=== PATIENT | male | born 1945 | race Caucasian/White ===

== ENCOUNTER 2018-04-13 21:00 | Inpatient (IN) ==
[2018-04-13] MEDS ORDERED: MORPHINE 4 MG/1 ML VIAL IV STA (21:38)
[2018-04-13] MEDS ORDERED: ONDANSETRON 4 MG/2 ML VIAL IV ONE (21:38)
[2018-04-13 21:58] LABS: Basophils # 0.1 10*3/uL (0.0-0.2); Basophils % 0.5 % (0.0-0.8); Eosinophils # 0.2 10*3/uL (0.0-0.87); Eosinophils % 1.6 % (0.00-10.9); Hematocrit 37.2 VOL% (42.0-52.0); Hemoglobin 12.2 GM/DL (14.0-18.0); Immature Granulocytes % 0.7 %; Immature Granulocytes Absolute 0.09 #; Lymphocytes # 1.7 10*3/uL (1.4-4.0); Mean Corpuscular HGB Conc 32.8 GM/DL (32-36); Mean Corpuscular Hemoglobin 28 PG (27-34); Mean Corpuscular Volume 84.5 FL (87-102); Mean Platelet Volume 8.9 FL (9.6-12.0); Monocytes # 1.2 10*3/uL (0.11-0.8); Monocytes % 9.6 % (1.7-12.7); Neutrophils # 8.9 10*3/uL (1.4-7.4); Neutrophils % 73.6 % (38.7-73.9); Platelet Count 428 T/CUMM (130-400); Red Cell Distribution Width 13.2 % (9.3-17.3); White Blood Count 12.1 T/CUMM (4-12)
[2018-04-13 22:12] LABS: Albumin 2.8 G/DL (3.4-5.0); Bilirubin,Total 0.7 MG/DL (0.2-1.0); Calcium 8.5 MG/DL (8.5-10.1); Osmolality,Calculated 276.8 MOS/KG (273-304); Potassium 3.9 MMOL/L (3.5-5.1); Total Protein 7.1 G/DL (6.4-8.3)
[2018-04-13] MEDS ORDERED: LEVOFLOXACIN INJ 500 MG in PREMIX 1 EACH IV STA (23:29)
[2018-04-13] MEDS ORDERED: diphenhydrAMINE CAP 25 MG CAPSULE PO PRN (23:57)
[2018-04-13] MEDS ORDERED: ACETAMINOPHEN 325 MG TABLET PO PRN (23:57)
[2018-04-13] MEDS ORDERED: BISACODYL 5 MG TABLET PO PRN (23:57)
[2018-04-13] MEDS ORDERED: guaiFENesin/DM ER 600-30 MG TABLET PO PRN (23:57)
[2018-04-13] MEDS ORDERED: MORPHINE 4 MG/1 ML VIAL IV PRN (23:57)
[2018-04-13] MEDS ORDERED: traZODone 50 MG TABLET PO PRN (23:57)
[2018-04-13] MEDS ORDERED: ONDANSETRON 4 MG/2 ML VIAL IV PRN (23:57)
[2018-04-13] MEDS ORDERED: NICOTINE 21 MG/24 HR PATCH TRANSDERM PRN (23:57)
[2018-04-14] MEDS ORDERED: MORPHINE 4 MG/1 ML VIAL IV STA (00:16)
[2018-04-14] MEDS: ALBUTEROL/IPRATROPIUM 3 ML NEB RESP TX SCH ×6 (02:37→23:47)
[2018-04-14 06:33] LABS: Basophils # 0.1 10*3/uL (0.0-0.2); Basophils % 0.5 % (0.0-0.8); Eosinophils # 0.2 10*3/uL (0.0-0.87); Eosinophils % 1.2 % (0.00-10.9); Hematocrit 38.5 VOL% (42.0-52.0); Hemoglobin 12.9 GM/DL (14.0-18.0); Immature Granulocytes % 0.8 %; Immature Granulocytes Absolute 0.11 #; Lymphocytes # 2.2 10*3/uL (1.4-4.0); Lymphocytes % 16.5 % (21.2-54.2); Mean Corpuscular HGB Conc 33.5 GM/DL (32-36); Mean Corpuscular Hemoglobin 28 PG (27-34); Mean Corpuscular Volume 84.2 FL (87-102); Mean Platelet Volume 8.8 FL (9.6-12.0); Monocytes # 1.3 10*3/uL (0.11-0.8); Monocytes % 9.8 % (1.7-12.7); Neutrophils # 9.6 10*3/uL (1.4-7.4); Neutrophils % 71.2 % (38.7-73.9); Platelet Count 449 T/CUMM (130-400); Red Blood Count 4.57 MC/CUMM (3.8-5.5); Red Cell Distribution Width 13.3 % (9.3-17.3); White Blood Count 13.6 T/CUMM (4-12)
[2018-04-14 06:40] LABS: Apearance,Urine CLEAR (Clear); Bilirubin,Urine Negative (Negative); Blood, Urine Negative (Negative); Glucose,Urine (UA) Negative (Negative); Ketones,Urine Negative (Negative); Nitrite,Urine Negative (Negative); Protein,Urine Negative; RBC,Urine 1 /HPF (0-4); Urine Color Yellow (Yellow); Urine Specific Gravity 1.047 (1.001-1.035); WBC,Urine <1 /HPF (0-6)
[2018-04-14 06:48] LABS: Calcium 8.5 MG/DL (8.5-10.1); Osmolality,Calculated 269.4 MOS/KG (273-304)
[2018-04-14] MEDS ORDERED: PANTOPRAZOLE 40 MG TABLET PO SCH (09:00)
[2018-04-14] MEDS: LACTATED RINGERS 1,000 ML IV SCH ×2 (10:51→23:02)
[2018-04-14] MEDS: CHOLECALCIFEROL 1,000 UNIT TABLET PO SCH ×2 (15:09→21:15)
[2018-04-14] MEDS: VENLAFAXINE XR 75 MG CAPSULE PO SCH (21:15)
[2018-04-14] MEDS ORDERED: LEVOFLOXACIN INJ 750 MG in PREMIX 1 EACH IV SCH (23:45)
[2018-04-15] MEDS: ALBUTEROL/IPRATROPIUM 3 ML NEB RESP TX SCH ×2 (04:33→07:22)
[2018-04-15 05:30] LABS: Basophils # 0.1 10*3/uL (0.0-0.2); Basophils % 0.6 % (0.0-0.8); Eosinophils # 0.2 10*3/uL (0.0-0.87); Eosinophils % 2.3 % (0.00-10.9); Hematocrit 35.2 VOL% (42.0-52.0); Hemoglobin 11.6 GM/DL (14.0-18.0); Immature Granulocytes % 0.7 %; Immature Granulocytes Absolute 0.07 #; Lymphocytes # 2.2 10*3/uL (1.4-4.0); Lymphocytes % 22.9 % (21.2-54.2); Mean Corpuscular Hemoglobin 28 PG (27-34); Mean Corpuscular Volume 85.2 FL (87-102); Mean Platelet Volume 8.9 FL (9.6-12.0); Monocytes # 0.9 10*3/uL (0.11-0.8); Monocytes % 9.3 % (1.7-12.7); Neutrophils % 64.2 % (38.7-73.9); Platelet Count 366 T/CUMM (130-400); Red Blood Count 4.13 MC/CUMM (3.8-5.5); Red Cell Distribution Width 13.3 % (9.3-17.3); White Blood Count 9.4 T/CUMM (4-12)
[2018-04-15 05:58] LABS: Calcium 8.5 MG/DL (8.5-10.1); Potassium 4.1 MMOL/L (3.5-5.1)
[2018-04-15 08:10] VITALS: BP 120/76
[2018-04-15] MEDS: VENLAFAXINE XR 75 MG CAPSULE PO SCH (08:50)
[2018-04-15] MEDS: CHOLECALCIFEROL 1,000 UNIT TABLET PO SCH (08:51)
[2018-04-15] MEDS ORDERED: ASPIRIN EC 81 MG TABLET PO SCH (09:00)
[2018-04-15] MEDS ORDERED: FENOFIBRATE 145 MG TABLET PO SCH (09:00)
[2018-04-15] MEDS ORDERED: ATORVASTATIN 20 MG TABLET PO SCH (09:00)
[2018-04-15] MEDS ORDERED: MULTIVITAMIN (CENTRUM) TABLET PO SCH (09:00)
[2018-04-15] MEDS ORDERED: OMEGA 3 ACID ETHYL ESTERS 1 GM CAPSULE PO SCH (09:00)
[2018-04-15] MEDS ORDERED: PANTOPRAZOLE 40 MG TABLET PO SCH (09:00)
[2018-04-15] MEDS ORDERED: CYANOCOBALAMIN 500 MCG TABLET PO SCH (09:00)
== END 2018-04-15 10:45 | disposition home or self-care (01) | DRG 195 ==
LOC: N.ED 21:00 → N.EDINP 21:00 → SUATTDRO 23:57 → N.2E 04-14 00:32
PROVIDERS: ADMIT Internal Medicine; ATTEND Family Medicine

== ENCOUNTER 2020-06-10 16:45 | Inpatient (IN) ==
[2020-06-10] MEDS ORDERED: SODIUM CHLORIDE 0.9% 1,000 ML IV STA (17:23)
[2020-06-10 18:54] LABS: Bilirubin,Urine Negative (Negative); Blood, Urine Moderate mg/dL (Negative); Glucose,Urine (UA) Negative (Negative); Ketones,Urine Negative (Negative); Mucus,Urine Occasional /LPF (Occasional); Nitrite,Urine Negative (Negative); Protein,Urine Negative; RBC,Urine 3 /HPF (0-4); Urine Appearance CLEAR (Clear); Urine Color Amber (Yellow); Urine Specific Gravity 1.018 (1.001-1.035); WBC,Urine 1 /HPF (0-6)
[2020-06-10 18:57] LABS: Basophils # 0.2 10*3/uL (0.0-0.2); Basophils % 1.5 % (0.0-0.8); Eosinophils % 0.3 % (0.00-10.9); Hematocrit 39.5 VOL% (42.0-52.0); Hemoglobin 13.9 GM/DL (14.0-18.0); Immature Granulocytes % 0.7 %; Immature Granulocytes Absolute 0.08 #; Lymphocytes # 1.6 10*3/uL (1.4-4.0); Lymphocytes % 12.7 % (21.2-54.2); Mean Corpuscular HGB Conc 35.2 GM/DL (32-36); Mean Corpuscular Volume 77.5 FL (87-102); Mean Platelet Volume 9.1 FL (9.6-12.0); Neutrophils % 74.8 % (38.7-73.9); Platelet Count 369 T/CUMM (130-400); Red Cell Distribution Width 14.8 % (9.3-17.3); White Blood Count 12.2 T/CUMM (4-12)
[2020-06-10 19:08] LABS: INR 1.2; PT Patient Result 12.6 SECS (9.8-11.9)
[2020-06-10 19:13] LABS: Albumin 2.6 G/DL (3.4-5.0); Bilirubin,Total 0.8 MG/DL (0.2-1.0); Calcium 8.2 MG/DL (8.5-10.1); Osmolality,Calculated 263.2 MOS/KG (273-304); Potassium 3.7 MMOL/L (3.5-5.1); Total Protein 6.4 G/DL (6.4-8.2)
[2020-06-10] MEDS ORDERED: ACETAMINOPHEN 500 MG TABLET PO STA (19:51)
[2020-06-10] MEDS ORDERED: DOCUSATE SODIUM 100 MG CAPSULE PO PRN (21:46)
[2020-06-10] MEDS ORDERED: ONDANSETRON 4 MG/2 ML VIAL IV PRN (21:46)
[2020-06-10] MEDS ORDERED: ACETAMINOPHEN 325 MG TABLET PO PRN (21:46)
[2020-06-10] MEDS ORDERED: GLUCAGON 1 MG VIAL IM PRN (21:46)
[2020-06-10] MEDS ORDERED: DEXTROSE 50% 25 GM/50 ML VIAL IV PRN (21:46)
[2020-06-10] MEDS ORDERED: LEVOFLOXACIN INJ 750 MG in PREMIX 1 EACH IV SCH (22:30)
[2020-06-10] MEDS ORDERED: VANCOMYCIN INJ 1,250 MG in SODIUM CHLORIDE 0.9% 250 ML IV SCH ×2 (23:00)
[2020-06-10] MEDS: VENLAFAXINE XR 75 MG CAPSULE PO SCH (23:45)
[2020-06-10] MEDS: SODIUM CHLORIDE 0.9% 1,000 ML IV SCH (23:45)
[2020-06-10] MEDS: CALCIUM CARBONATE CHEW 500 MG TABLET PO SCH (23:45)
[2020-06-11 03:55] LABS: Basophils # 0.2 10*3/uL (0.0-0.2); Basophils % 1.7 % (0.0-0.8); Eosinophils # 0.2 10*3/uL (0.0-0.87); Eosinophils % 2.1 % (0.00-10.9); Hematocrit 36.5 VOL% (42.0-52.0); Hemoglobin 12.5 GM/DL (14.0-18.0); Immature Granulocytes % 0.5 %; Immature Granulocytes Absolute 0.05 #; Lymphocytes # 1.2 10*3/uL (1.4-4.0); Lymphocytes % 12.4 % (21.2-54.2); Mean Corpuscular HGB Conc 34.2 GM/DL (32-36); Mean Platelet Volume 9.3 FL (9.6-12.0); Monocytes % 10.6 % (1.7-12.7); Neutrophils % 72.7 % (38.7-73.9); Platelet Count 298 T/CUMM (130-400); Red Blood Count 4.62 MC/CUMM (3.8-5.5); White Blood Count 9.4 T/CUMM (4-12)
[2020-06-11 04:17] LABS: Calcium 7.4 MG/DL (8.5-10.1); Osmolality,Calculated 268.7 MOS/KG (273-304); Potassium 3.3 MMOL/L (3.5-5.1)
[2020-06-11] MEDS ORDERED: MAGNESIUM SULF RIDER 2 GM in PREMIX 1 EACH IV PRN (04:30)
[2020-06-11] MEDS ORDERED: POTASSIUM CHLORIDE 20 MEQ TABLET PO PRN (04:30)
[2020-06-11] MEDS ORDERED: MAGNESIUM SULF RIDER 4 GM in PREMIX 1 EACH IV PRN (04:30)
[2020-06-11] MEDS: PIPERACILLIN/TAZOBACTAM 3,375 MG in SODIUM CHLORIDE 0.9% 100 ML IV SCH ×2 (05:09→16:15)
[2020-06-11] MEDS: ASPIRIN EC 81 MG TABLET PO SCH (09:28)
[2020-06-11] MEDS: PANTOPRAZOLE 40 MG TABLET PO SCH (09:28)
[2020-06-11] MEDS: CHOLECALCIFEROL 1,000 UNIT TABLET PO SCH (09:29)
[2020-06-11] MEDS: MONTELUKAST 10 MG TABLET PO SCH (09:29)
[2020-06-11] MEDS: CYANOCOBALAMIN 500 MCG TABLET PO SCH (09:29)
[2020-06-11] MEDS: MEGESTROL 40 MG TABLET PO SCH (09:30)
[2020-06-11] MEDS: OMEGA 3 ACID ETHYL ESTERS 1 GM CAPSULE PO SCH ×2 (09:31→20:34)
[2020-06-11] MEDS: FENOFIBRATE 145 MG TABLET PO SCH (09:31)
[2020-06-11] MEDS: MULTIVITAMIN (CENTRUM) TABLET PO SCH (09:31)
[2020-06-11] MEDS: CALCIUM CARBONATE CHEW 500 MG TABLET PO SCH ×2 (09:32→20:34)
[2020-06-11] MEDS: VENLAFAXINE XR 75 MG CAPSULE PO SCH ×2 (09:32→20:34)
[2020-06-11] MEDS: TAMSULOSIN 0.4 MG CAPSULE PO SCH (13:34)
[2020-06-11] MEDS: SODIUM CHLORIDE 0.9% 1,000 ML IV SCH ×2 (14:30→16:27)
[2020-06-11] MEDS: ZINC OXIDE PASTE 113 GM TUBE TOP SCH ×2 (14:34→20:35)
[2020-06-11] MEDS: PRAMIPEXOLE 0.25 MG TABLET PO SCH (18:45)
[2020-06-11] MEDS ORDERED: ATORVASTATIN 20 MG TABLET PO SCH (21:00)
[2020-06-12] MEDS: PIPERACILLIN/TAZOBACTAM 3,375 MG in SODIUM CHLORIDE 0.9% 100 ML IV SCH ×4 (01:07→23:25)
[2020-06-12 06:56] LABS: Basophils # 0.1 10*3/uL (0.0-0.2); Eosinophils # 0.1 10*3/uL (0.0-0.87); Eosinophils % 1.2 % (0.00-10.9); Hematocrit 38.7 VOL% (42.0-52.0); Immature Granulocytes % 0.6 %; Immature Granulocytes Absolute 0.06 #; Lymphocytes % 10.2 % (21.2-54.2); Mean Corpuscular HGB Conc 33.6 GM/DL (32-36); Mean Platelet Volume 9.2 FL (9.6-12.0); Monocytes % 8.7 % (1.7-12.7); Neutrophils % 78.3 % (38.7-73.9); Platelet Count 278 T/CUMM (130-400); Red Cell Distribution Width 14.9 % (9.3-17.3); White Blood Count 9.4 T/CUMM (4-12)
[2020-06-12 07:01] LABS: Calcium 6.8 MG/DL (8.5-10.1); Osmolality,Calculated 256.1 MOS/KG (273-304); Potassium 3.1 MMOL/L (3.5-5.1)
[2020-06-12] MEDS: ZINC OXIDE PASTE 113 GM TUBE TOP SCH ×2 (08:11→21:41)
[2020-06-12] MEDS: CHOLECALCIFEROL 1,000 UNIT TABLET PO SCH (09:03)
[2020-06-12] MEDS: TAMSULOSIN 0.4 MG CAPSULE PO SCH (09:03)
[2020-06-12] MEDS: MONTELUKAST 10 MG TABLET PO SCH (09:03)
[2020-06-12] MEDS: VENLAFAXINE XR 75 MG CAPSULE PO SCH ×2 (09:03→21:41)
[2020-06-12] MEDS: OMEGA 3 ACID ETHYL ESTERS 1 GM CAPSULE PO SCH ×2 (09:03→21:41)
[2020-06-12] MEDS: ASPIRIN EC 81 MG TABLET PO SCH (09:04)
[2020-06-12] MEDS: MULTIVITAMIN (CENTRUM) TABLET PO SCH (09:04)
[2020-06-12] MEDS: MEGESTROL 40 MG TABLET PO SCH (09:04)
[2020-06-12] MEDS: CALCIUM CARBONATE CHEW 500 MG TABLET PO SCH ×2 (09:04→21:41)
[2020-06-12] MEDS: CYANOCOBALAMIN 500 MCG TABLET PO SCH (09:04)
[2020-06-12] MEDS: PANTOPRAZOLE 40 MG TABLET PO SCH (09:04)
[2020-06-12] MEDS: FENOFIBRATE 145 MG TABLET PO SCH (09:05)
[2020-06-12] MEDS ORDERED: FUROSEMIDE 20 MG/2 ML VIAL IV ONE (11:00)
[2020-06-12] MEDS ORDERED: ENOXAPARIN 40 MG/0.4 ML SYRINGE SUBCUT SCH (16:00)
[2020-06-12] MEDS: POTASSIUM CHLORIDE 10 MEQ TABLET PO SCH (17:03)
[2020-06-12] MEDS: PRAMIPEXOLE 0.25 MG TABLET PO SCH (21:41)
[2020-06-13] MEDS: SODIUM CHLORIDE 0.9% 1,000 ML IV SCH (02:23)
[2020-06-13 06:34] LABS: Basophils # 0.1 10*3/uL (0.0-0.2); Basophils % 1.1 % (0.0-0.8); Eosinophils # 0.3 10*3/uL (0.0-0.87); Eosinophils % 2.8 % (0.00-10.9); Hematocrit 40.4 VOL% (42.0-52.0); Hemoglobin 13.8 GM/DL (14.0-18.0); Immature Granulocytes % 0.8 %; Immature Granulocytes Absolute 0.08 #; Lymphocytes # 1.7 10*3/uL (1.4-4.0); Lymphocytes % 16.3 % (21.2-54.2); Mean Corpuscular HGB Conc 34.2 GM/DL (32-36); Mean Platelet Volume 9.4 FL (9.6-12.0); Platelet Count 287 T/CUMM (130-400); Red Blood Count 5.18 MC/CUMM (3.8-5.5); White Blood Count 10.6 T/CUMM (4-12)
[2020-06-13 08:27] LABS: Osmolality,Calculated 260.9 MOS/KG (273-304); Potassium 3.6 MMOL/L (3.5-5.1)
[2020-06-13] MEDS: CHOLECALCIFEROL 1,000 UNIT TABLET PO SCH (09:01)
[2020-06-13] MEDS: ASPIRIN EC 81 MG TABLET PO SCH (09:01)
[2020-06-13] MEDS: VENLAFAXINE XR 75 MG CAPSULE PO SCH (09:01)
[2020-06-13] MEDS: OMEGA 3 ACID ETHYL ESTERS 1 GM CAPSULE PO SCH (09:01)
[2020-06-13] MEDS: CALCIUM CARBONATE CHEW 500 MG TABLET PO SCH (09:02)
[2020-06-13] MEDS: MEGESTROL 40 MG TABLET PO SCH (09:04)
[2020-06-13] MEDS: MONTELUKAST 10 MG TABLET PO SCH (09:04)
[2020-06-13] MEDS: POTASSIUM CHLORIDE 10 MEQ TABLET PO SCH (09:04)
[2020-06-13] MEDS: MULTIVITAMIN (CENTRUM) TABLET PO SCH (09:04)
[2020-06-13] MEDS: PANTOPRAZOLE 40 MG TABLET PO SCH (09:04)
[2020-06-13] MEDS: TAMSULOSIN 0.4 MG CAPSULE PO SCH (09:04)
[2020-06-13] MEDS: CYANOCOBALAMIN 500 MCG TABLET PO SCH (09:05)
[2020-06-13] MEDS: PIPERACILLIN/TAZOBACTAM 3,375 MG in SODIUM CHLORIDE 0.9% 100 ML IV SCH ×2 (09:05→17:22)
[2020-06-13] MEDS: ZINC OXIDE PASTE 113 GM TUBE TOP SCH (09:06)
[2020-06-13] MEDS ORDERED: FUROSEMIDE 40 MG/4 ML VIAL IV ONE ×2 (11:43→14:30)
[2020-06-13] MEDS ORDERED: FUROSEMIDE 40 MG/4 ML VIAL ONE (11:45)
[2020-06-13] MEDS ORDERED: METOPROLOL TARTRATE 5 MG/5 ML VIAL IV ONE (12:46)
[2020-06-13] MEDS ORDERED: ALBUTEROL/IPRATROPIUM 3 ML NEB RESP TX SCH (13:00)
[2020-06-13] MEDS: LEVALBUTEROL 0.63 MG/3 ML NEB RESP TX SCH ×2 (13:00→19:40)
[2020-06-13 13:07] LABS: Basophils # 0.1 10*3/uL (0.0-0.2); Basophils % 0.7 % (0.0-0.8); Eosinophils % 0.2 % (0.00-10.9); Hematocrit 40.6 VOL% (42.0-52.0); Hemoglobin 14.2 GM/DL (14.0-18.0); Immature Granulocytes % 2.5 %; Immature Granulocytes Absolute 0.41 #; Lymphocytes # 1.1 10*3/uL (1.4-4.0); Lymphocytes % 6.6 % (21.2-54.2); Mean Corpuscular Volume 77.5 FL (87-102); Mean Platelet Volume 9.2 FL (9.6-12.0); Monocytes % 5.9 % (1.7-12.7); Neutrophils % 84.1 % (38.7-73.9); Platelet Count 382 T/CUMM (130-400); Red Blood Count 5.24 MC/CUMM (3.8-5.5); White Blood Count 16.2 T/CUMM (4-12)
[2020-06-13 13:36] LABS: CKMB % 1.9 %; Calcium 7.3 MG/DL (8.5-10.1); Osmolality,Calculated 261.1 MOS/KG (273-304); Potassium 3.8 MMOL/L (3.5-5.1)
[2020-06-13 13:40] LABS: Troponin I 1.05 NG/ML (0.00-0.045)
[2020-06-13] MEDS ORDERED: ENOXAPARIN 80 MG/0.8 ML SYRINGE SUBCUT SCH (14:00)
[2020-06-13] MEDS ORDERED: DIGOXIN 0.5 MG/2 ML AMP IV ONE (14:31)
[2020-06-13] MEDS: METOPROLOL TARTRATE 25 MG TABLET PO SCH (14:32)
[2020-06-13] MEDS: DILTIAZEM INJ 100 MG in SODIUM CHLORIDE 0.9% 100 ML IV SCH (14:45)
[2020-06-13 15:28] LABS: ABG Base Excess -2.9 MMOL/L (-2.5-2.5); ABG Oxygen Saturation 97.3 % (95-100); ABG PCO2 21.8 MM HG (35-48); ABG PH 7.521 (7.35-7.45); ABG PO2 82.8 MM HG (80-95); ABG TCO2 15.2 MMOL/L (23-27)
[2020-06-13] MEDS: VANCOMYCIN INJ 1,000 MG in SODIUM CHLORIDE 0.9% 250 ML IV SCH (16:35)
[2020-06-13] MEDS ORDERED: HALOPERIDOL 5 MG/ML AMP IM PRN (22:19)
[2020-06-14] MEDS ORDERED: DIGOXIN 0.5 MG/2 ML AMP IV ONE (00:10)
[2020-06-14] MEDS: PIPERACILLIN/TAZOBACTAM 3,375 MG in SODIUM CHLORIDE 0.9% 100 ML IV SCH ×3 (00:36→16:33)
[2020-06-14] MEDS: LORazepam 2 MG/1 ML VIAL IV PRN (01:06)
[2020-06-14] MEDS: LEVALBUTEROL 0.63 MG/3 ML NEB RESP TX SCH ×4 (01:50→19:21)
[2020-06-14] MEDS: VENLAFAXINE XR 75 MG CAPSULE PO SCH ×3 (02:12→22:10)
[2020-06-14] MEDS: ZINC OXIDE PASTE 113 GM TUBE TOP SCH ×3 (02:12→21:28)
[2020-06-14] MEDS: OMEGA 3 ACID ETHYL ESTERS 1 GM CAPSULE PO SCH ×3 (02:12→23:15)
[2020-06-14] MEDS: PRAMIPEXOLE 0.25 MG TABLET PO SCH ×2 (02:12→22:10)
[2020-06-14] MEDS: CALCIUM CARBONATE CHEW 500 MG TABLET PO SCH ×3 (02:13→23:15)
[2020-06-14] MEDS: DILTIAZEM INJ 100 MG in SODIUM CHLORIDE 0.9% 100 ML IV SCH ×2 (02:31→15:57)
[2020-06-14] MEDS: VANCOMYCIN INJ 1,000 MG in SODIUM CHLORIDE 0.9% 250 ML IV SCH ×2 (03:19→16:37)
[2020-06-14] MEDS ORDERED: FUROSEMIDE 40 MG/4 ML VIAL IV SCH (09:00)
[2020-06-14 09:29] LABS: Calcium 7.6 MG/DL (8.5-10.1); Osmolality,Calculated 273.2 MOS/KG (273-304); Potassium 3.5 MMOL/L (3.5-5.1)
[2020-06-14 09:33] LABS: Basophils # 0.1 10*3/uL (0.0-0.2); Basophils % 0.9 % (0.0-0.8); Eosinophils % 0.1 % (0.00-10.9); Hematocrit 41.3 VOL% (42.0-52.0); Hemoglobin 13.7 GM/DL (14.0-18.0); Immature Granulocytes % 0.9 %; Immature Granulocytes Absolute 0.14 #; Lymphocytes # 1.4 10*3/uL (1.4-4.0); Lymphocytes % 9.3 % (21.2-54.2); Mean Corpuscular HGB Conc 33.2 GM/DL (32-36); Mean Corpuscular Volume 80.7 FL (87-102); Mean Platelet Volume 9.8 FL (9.6-12.0); Monocytes % 8.1 % (1.7-12.7); Neutrophils % 80.7 % (38.7-73.9); Platelet Count 369 T/CUMM (130-400); Red Blood Count 5.12 MC/CUMM (3.8-5.5); Red Cell Distribution Width 15.6 % (9.3-17.3); White Blood Count 14.8 T/CUMM (4-12)
[2020-06-14] MEDS: ASPIRIN EC 81 MG TABLET PO SCH (09:43)
[2020-06-14] MEDS: MULTIVITAMIN (CENTRUM) TABLET PO SCH (09:44)
[2020-06-14] MEDS: METOPROLOL TARTRATE 25 MG TABLET PO SCH (09:44)
[2020-06-14] MEDS: POTASSIUM CHLORIDE 10 MEQ TABLET PO SCH (09:44)
[2020-06-14] MEDS: TAMSULOSIN 0.4 MG CAPSULE PO SCH (09:44)
[2020-06-14] MEDS: CHOLECALCIFEROL 1,000 UNIT TABLET PO SCH (09:45)
[2020-06-14] MEDS: PANTOPRAZOLE 40 MG TABLET PO SCH (09:45)
[2020-06-14] MEDS: MONTELUKAST 10 MG TABLET PO SCH (09:45)
[2020-06-14] MEDS: CYANOCOBALAMIN 500 MCG TABLET PO SCH (09:45)
[2020-06-14] MEDS: MEGESTROL 40 MG TABLET PO SCH (09:45)
[2020-06-14] MEDS: FUROSEMIDE 40 MG/4 ML VIAL IV SCH (16:33)
[2020-06-15] MEDS: PIPERACILLIN/TAZOBACTAM 3,375 MG in SODIUM CHLORIDE 0.9% 100 ML IV SCH ×4 (00:40→23:37)
[2020-06-15] MEDS: LEVALBUTEROL 0.63 MG/3 ML NEB RESP TX SCH ×4 (00:42→19:50)
[2020-06-15 03:52] LABS: Basophils # 0.1 10*3/uL (0.0-0.2); Basophils % 1.2 % (0.0-0.8); Eosinophils # 0.3 10*3/uL (0.0-0.87); Eosinophils % 2.6 % (0.00-10.9); Hematocrit 36.1 VOL% (42.0-52.0); Hemoglobin 12.3 GM/DL (14.0-18.0); Immature Granulocytes Absolute 0.12 #; Lymphocytes # 0.9 10*3/uL (1.4-4.0); Lymphocytes % 8.1 % (21.2-54.2); Mean Corpuscular HGB Conc 34.1 GM/DL (32-36); Mean Corpuscular Volume 78.6 FL (87-102); Mean Platelet Volume 9.2 FL (9.6-12.0); Neutrophils % 79.1 % (38.7-73.9); Platelet Count 314 T/CUMM (130-400); Red Blood Count 4.59 MC/CUMM (3.8-5.5); Red Cell Distribution Width 15.8 % (9.3-17.3); White Blood Count 11.5 T/CUMM (4-12)
[2020-06-15 04:12] LABS: Osmolality,Calculated 277.8 MOS/KG (273-304); Potassium 3.2 MMOL/L (3.5-5.1)
[2020-06-15] MEDS: VANCOMYCIN INJ 1,000 MG in SODIUM CHLORIDE 0.9% 250 ML IV SCH ×2 (04:30→17:28)
[2020-06-15] MEDS ORDERED: POTASSIUM CHLORIDE 20 MEQ TABLET PO ONE (09:12)
[2020-06-15] MEDS: FUROSEMIDE 40 MG/4 ML VIAL IV SCH ×2 (10:16→17:09)
[2020-06-15] MEDS: CYANOCOBALAMIN 500 MCG TABLET PO SCH (10:17)
[2020-06-15] MEDS: MEGESTROL 40 MG TABLET PO SCH (10:17)
[2020-06-15] MEDS: ASPIRIN EC 81 MG TABLET PO SCH (10:17)
[2020-06-15] MEDS: METOPROLOL TARTRATE 25 MG TABLET PO SCH ×2 (10:18→20:58)
[2020-06-15] MEDS: POTASSIUM CHLORIDE 10 MEQ TABLET PO SCH (10:18)
[2020-06-15] MEDS: VENLAFAXINE XR 75 MG CAPSULE PO SCH ×2 (10:18→20:58)
[2020-06-15] MEDS: TAMSULOSIN 0.4 MG CAPSULE PO SCH (10:18)
[2020-06-15] MEDS: ZINC OXIDE PASTE 113 GM TUBE TOP SCH ×2 (10:38→20:58)
[2020-06-15] MEDS: OMEGA 3 ACID ETHYL ESTERS 1 GM CAPSULE PO SCH ×2 (11:11→20:58)
[2020-06-15] MEDS: MULTIVITAMIN (CENTRUM) TABLET PO SCH (11:11)
[2020-06-15] MEDS: MONTELUKAST 10 MG TABLET PO SCH (11:16)
[2020-06-15] MEDS: CALCIUM CARBONATE CHEW 500 MG TABLET PO SCH ×2 (11:16→20:59)
[2020-06-15] MEDS: PANTOPRAZOLE 40 MG TABLET PO SCH (11:16)
[2020-06-15] MEDS: CHOLECALCIFEROL 1,000 UNIT TABLET PO SCH (11:17)
[2020-06-15] MEDS: DILTIAZEM INJ 100 MG in SODIUM CHLORIDE 0.9% 100 ML IV SCH (16:04)
[2020-06-15] MEDS: PRAMIPEXOLE 0.25 MG TABLET PO SCH (20:59)
[2020-06-16] MEDS: LEVALBUTEROL 0.63 MG/3 ML NEB RESP TX SCH ×4 (00:56→20:05)
[2020-06-16] MEDS: VANCOMYCIN INJ 1,000 MG in SODIUM CHLORIDE 0.9% 250 ML IV SCH (04:40)
[2020-06-16] MEDS ORDERED: METOPROLOL TARTRATE 25 MG TABLET PO ONE (09:50)
[2020-06-16] MEDS: CHOLECALCIFEROL 1,000 UNIT TABLET PO SCH (09:53)
[2020-06-16] MEDS: MULTIVITAMIN (CENTRUM) TABLET PO SCH (09:53)
[2020-06-16] MEDS: POTASSIUM CHLORIDE 10 MEQ TABLET PO SCH (09:54)
[2020-06-16] MEDS: VENLAFAXINE XR 75 MG CAPSULE PO SCH ×2 (09:54→20:51)
[2020-06-16] MEDS: MEGESTROL 40 MG TABLET PO SCH (09:54)
[2020-06-16] MEDS: PANTOPRAZOLE 40 MG TABLET PO SCH (09:54)
[2020-06-16] MEDS: TAMSULOSIN 0.4 MG CAPSULE PO SCH (09:55)
[2020-06-16] MEDS: MONTELUKAST 10 MG TABLET PO SCH (09:55)
[2020-06-16] MEDS: CALCIUM CARBONATE CHEW 500 MG TABLET PO SCH ×2 (09:55→20:52)
[2020-06-16] MEDS: CYANOCOBALAMIN 500 MCG TABLET PO SCH (09:55)
[2020-06-16] MEDS: ASPIRIN EC 81 MG TABLET PO SCH (09:55)
[2020-06-16] MEDS: ZINC OXIDE PASTE 113 GM TUBE TOP SCH ×2 (09:58→20:51)
[2020-06-16] MEDS: OMEGA 3 ACID ETHYL ESTERS 1 GM CAPSULE PO SCH ×2 (09:59→20:52)
[2020-06-16] MEDS: FUROSEMIDE 40 MG/4 ML VIAL IV SCH (10:10)
[2020-06-16] MEDS: METOPROLOL TARTRATE 25 MG TABLET PO SCH ×2 (10:11→20:51)
[2020-06-16] MEDS: PIPERACILLIN/TAZOBACTAM 3,375 MG in SODIUM CHLORIDE 0.9% 100 ML IV SCH (10:13)
[2020-06-16] MEDS: LORazepam 2 MG/1 ML VIAL IV PRN (10:18)
[2020-06-16 11:22] LABS: Calcium 7.6 MG/DL (8.5-10.1); Potassium 4.6 MMOL/L (3.5-5.1)
[2020-06-16] MEDS: DEXTROSE 5% NACL 0.45% 1,000 ML IV SCH (15:09)
[2020-06-16] MEDS: PRAMIPEXOLE 0.25 MG TABLET PO SCH (20:52)
[2020-06-17] MEDS: LEVALBUTEROL 0.63 MG/3 ML NEB RESP TX SCH ×4 (01:25→19:38)
[2020-06-17] MEDS: DEXTROSE 5% NACL 0.45% 1,000 ML IV SCH ×2 (05:04→16:36)
[2020-06-17 05:55] LABS: Basophils # 0.2 10*3/uL (0.0-0.2); Basophils % 1.7 % (0.0-0.8); Eosinophils # 0.5 10*3/uL (0.0-0.87); Eosinophils % 4.6 % (0.00-10.9); Hematocrit 38.7 VOL% (42.0-52.0); Hemoglobin 12.6 GM/DL (14.0-18.0); Immature Granulocytes % 4.1 %; Lymphocytes # 1.3 10*3/uL (1.4-4.0); Lymphocytes % 13.6 % (21.2-54.2); Mean Corpuscular HGB Conc 32.6 GM/DL (32-36); Mean Corpuscular Volume 81.6 FL (87-102); Mean Platelet Volume 9.2 FL (9.6-12.0); Monocytes % 12.3 % (1.7-12.7); Neutrophils % 63.7 % (38.7-73.9); Platelet Count 404 T/CUMM (130-400); Red Blood Count 4.74 MC/CUMM (3.8-5.5); Red Cell Distribution Width 17.9 % (9.3-17.3); White Blood Count 9.8 T/CUMM (4-12)
[2020-06-17 06:03] LABS: Calcium 7.5 MG/DL (8.5-10.1); Osmolality,Calculated 292.1 MOS/KG (273-304); Potassium 3.7 MMOL/L (3.5-5.1)
[2020-06-17 06:13] LABS: Band Neutrophils 2 % (0-10); Eosinophils 2 % (0-10); Lymphocytes 23 % (20-55); Segmented Neutrophils 61 % (50-85); Total Cells Counted 100
[2020-06-17 06:14] LABS: Platelet Estimate Adequate
[2020-06-17] MEDS: MEGESTROL 40 MG TABLET PO SCH (08:33)
[2020-06-17] MEDS: METOPROLOL TARTRATE 25 MG TABLET PO SCH ×2 (08:33→20:17)
[2020-06-17] MEDS: TAMSULOSIN 0.4 MG CAPSULE PO SCH (08:33)
[2020-06-17] MEDS: PANTOPRAZOLE 40 MG TABLET PO SCH (08:33)
[2020-06-17] MEDS: CALCIUM CARBONATE CHEW 500 MG TABLET PO SCH ×2 (08:33→20:18)
[2020-06-17] MEDS: OMEGA 3 ACID ETHYL ESTERS 1 GM CAPSULE PO SCH ×3 (08:33→20:22)
[2020-06-17] MEDS: MONTELUKAST 10 MG TABLET PO SCH (08:34)
[2020-06-17] MEDS: VENLAFAXINE XR 75 MG CAPSULE PO SCH ×2 (08:34→20:17)
[2020-06-17] MEDS: CYANOCOBALAMIN 500 MCG TABLET PO SCH (08:34)
[2020-06-17] MEDS: MULTIVITAMIN (CENTRUM) TABLET PO SCH (08:34)
[2020-06-17] MEDS: POTASSIUM CHLORIDE 10 MEQ TABLET PO SCH (08:34)
[2020-06-17] MEDS: ASPIRIN EC 81 MG TABLET PO SCH (08:34)
[2020-06-17] MEDS: CHOLECALCIFEROL 1,000 UNIT TABLET PO SCH (08:34)
[2020-06-17] MEDS: ZINC OXIDE PASTE 113 GM TUBE TOP SCH ×2 (08:35→22:54)
[2020-06-17] MEDS ORDERED: LORazepam 2 MG/1 ML VIAL IV PRN (09:19)
[2020-06-17] MEDS: PRAMIPEXOLE 0.25 MG TABLET PO SCH (20:18)
[2020-06-18] MEDS: LEVALBUTEROL 0.63 MG/3 ML NEB RESP TX SCH ×3 (00:16→14:04)
[2020-06-18] MEDS: DEXTROSE 5% NACL 0.45% 1,000 ML IV SCH (05:26)
[2020-06-18 06:40] LABS: Calcium 7.2 MG/DL (8.5-10.1); Osmolality,Calculated 290.1 MOS/KG (273-304); Potassium 3.6 MMOL/L (3.5-5.1)
[2020-06-18] MEDS: VENLAFAXINE XR 75 MG CAPSULE PO SCH (08:46)
[2020-06-18] MEDS: PANTOPRAZOLE 40 MG TABLET PO SCH (08:46)
[2020-06-18] MEDS: POTASSIUM CHLORIDE 10 MEQ TABLET PO SCH (08:46)
[2020-06-18] MEDS: CALCIUM CARBONATE CHEW 500 MG TABLET PO SCH (08:46)
[2020-06-18] MEDS: CHOLECALCIFEROL 1,000 UNIT TABLET PO SCH (08:46)
[2020-06-18] MEDS: MEGESTROL 40 MG TABLET PO SCH (08:46)
[2020-06-18] MEDS: TAMSULOSIN 0.4 MG CAPSULE PO SCH (08:46)
[2020-06-18] MEDS: CYANOCOBALAMIN 500 MCG TABLET PO SCH (08:47)
[2020-06-18] MEDS: OMEGA 3 ACID ETHYL ESTERS 1 GM CAPSULE PO SCH (08:47)
[2020-06-18] MEDS: ZINC OXIDE PASTE 113 GM TUBE TOP SCH (08:47)
[2020-06-18] MEDS: MONTELUKAST 10 MG TABLET PO SCH (08:47)
[2020-06-18] MEDS: ASPIRIN EC 81 MG TABLET PO SCH (08:47)
[2020-06-18] MEDS: MULTIVITAMIN (CENTRUM) TABLET PO SCH (08:47)
[2020-06-18] MEDS: METOPROLOL TARTRATE 25 MG TABLET PO SCH (08:47)
[2020-06-18] MEDS ORDERED: TUBERCULIN SKIN TEST 0.1 ML SYRINGE INTRADERM ONE (08:51)
[2020-06-18 12:12] VITALS: BP 171/90
== END 2020-06-18 15:03 | disposition hospice, inpatient (51) | DRG 193 ==
LOC: EDUNIT# → EDBD → N.ED 16:45 → SUATTDRO 19:43 → N.EDINP 19:43 → N.4E 20:40 → N.TELEN 06-13 13:54 → N.4E 06-17 16:03
PROVIDERS: ADMIT Internal Medicine; ATTEND Internal Medicine